=== PATIENT | female | born 1980 | race Caucasian/White ===

== ENCOUNTER 2017-03-12 07:09 | Inpatient (IN) | payer MEDICAID, OTHER ==
[2017-03-10 09:58] VITALS: BMI 35.9
[~2017-03-12] VITALS: Ht 160 cm; Wt 92.0 kg
[2017-03-12] VITALS (23 sets, daily range): BP systolic 110–143; BP diastolic 58–85; PULSE 54–84; RESP 14–24; Ht 160 cm; Wt 92.0 kg
[~2017-03-12 07:09] MED LIST: ROCURONIUM 50 MG INJ ONE
[2017-03-12] MEDS ORDERED: LISI10TA2 PO (07:38)
[2017-03-12] MEDS ORDERED: LACTATED RINGER'S 1,000 ML IV* SCH (09:00)
[2017-03-12] MEDS ORDERED: CEFAZOLIN 2 GM/50 ML (PMX) 50 ML IVPB SCH (09:00)
[2017-03-12] MEDS ORDERED: BUPIVACAINE 0.25% (MPF) 10 ML 10 ML VIAL ONE (10:21)
[2017-03-12] MEDS ORDERED: POLYMYXIN/BACITRACIN 1L IRRIG ONE (10:21)
[2017-03-12] MEDS ORDERED: THROMBIN 5000 UNIT VIAL ONE (10:21)
[2017-03-12] MEDS ORDERED: GELATIN SIZE 100 SPONGE ONE ×2 (10:21→12:20)
--- NOTE | 2017-03-12 10:50 | HPN ---
Date/Time of Note Date/Time of Note DATE: 03/12/17 TIME: 10:49 Interval H&P Admission Note Pt. seen H&P reviewed: No system changes SUNSHINE VEGA MD Mar 12, 2017 10:49
[2017-03-12] MEDS ORDERED: FENTAnyl 50 MCG/ML VIAL ONE (11:09)
[2017-03-12] MEDS ORDERED: PROPOFOL 20 ML ONE (11:10)
[2017-03-12] MEDS ORDERED: LIDOCAINE 2% (SDV) 5 ML INJ ONE (11:10)
[2017-03-12] MEDS ORDERED: LABETALOL HCL 20MG INJ ONE (11:37)
[2017-03-12] MEDS ORDERED: morphine 10 MG INJ ONE (11:38)
[2017-03-12] MEDS ORDERED: DEXAMETHASONE 4 MG/ML 1 ML INJ ONE (11:43)
--- NOTE | 2017-03-12 12:24 | RADRPT ---
PROCEDURE: Intraoperative XR. CLINICAL INDICATION: Intraoperative radiograph during lumbar spine surgery. TECHNIQUE: Spot intraoperative lateral lumbar x-ray image was provided. The images were reviewed on a high-resolution PACS workstation. COMPARISON: None available FINDINGS: Spot intraoperative lateral lumbar view were provided during lumbar spine surgery. The images demon strate metallic probe at the level of L3-4 and L4-5. IMPRESSION: 1. Spot intraoperative lateral lumbar view during L4-5 microdiskectomy were provided. 2. Please see operative report of the same day for further information. RPTAT: HGAS .James Foster MD, MD Date Time Electronically viewed and signed by .James Foster MD, on 03/12/2017 12:24 .S/
--- NOTE | 2017-03-12 12:25 | RADRPT ---
PROCEDURE: Intraoperative XR. CLINICAL INDICATION: Intraoperative radiograph during lumbar spine surgery. TECHNIQUE: Spot intraoperative lateral lumbar x-ray image was provided. The images were reviewed on a high-resolution PACS workstation. COMPARISON: None available FINDINGS: Spot intraoperative lateral lumbar view were provided during lumbar spine surgery. The images demon strate metallic instrumentation at the level of L4-5. IMPRESSION: 1. Spot intraoperative lateral lumbar view during L4-5 microdiskectomy were provided. 2. Please see operative report of the same day for further information. RPTAT: HGAS .James Foster MD, Date Time Electronically viewed and signed by .James Foster MD, MD on 03/12/2017 12:24 .S/
[2017-03-12] MEDS ORDERED: hydrALAzine 20 MG INJ IV PRN (12:30)
[2017-03-12] MEDS ORDERED: DIPHENHYDRAMINE 50 MG INJ IV PRN (12:30)
[2017-03-12] MEDS ORDERED: MEPERIDINE 25 MG INJ IV PRN (12:30)
[2017-03-12] MEDS ORDERED: EPHEDrine SULFATE 50 MG/5 ML SYG IV PRN (12:30)
[2017-03-12] MEDS ORDERED: HYDROmorphONE (0.2 MG/ML) 10ML SYG IV PRN ×3 (12:30)
[2017-03-12] MEDS ORDERED: ONDANSETRON 4 MG INJ IV PRN (12:30)
[2017-03-12] MEDS ORDERED: FENTAnyl 50 MCG/ML VIAL IV PRN ×3 (12:30)
[2017-03-12] MEDS ORDERED: ONDANSETRON 4 MG INJ ONE (12:30)
[2017-03-12] MEDS ORDERED: LABETALOL HCL 20MG INJ IV PRN (12:30)
[2017-03-12] MEDS ORDERED: METOCLOPRAMIDE 10 MG INJ IV PRN (12:30)
[2017-03-12] MEDS ORDERED: OXYCODONE/ACETAMINOPHEN (5/325) TAB PO PRN ×2 (12:30)
[2017-03-12] MEDS ORDERED: DEXTROSE 5%-0.45% NACL 1,000 ML IV SCH (12:56)
[2017-03-12] MEDS ORDERED: BETHANECHOL 25 MG TAB PO PRN (13:00)
[2017-03-12] MEDS ORDERED: DIPHENHYDRAMINE 50 MG CAP PO PRN (13:00)
[2017-03-12] MEDS ORDERED: CEPASTAT LOZENGE MT PRN (13:00)
[2017-03-12] MEDS ORDERED: HYDROmorphONE 0.2 MG/ML PCA IV SCH (13:00)
[2017-03-12] MEDS ORDERED: HYDROCODONE/APAP (5/325) TAB PO PRN ×3 (13:00→20:00)
[2017-03-12] MEDS ORDERED: NALOXONE (0.4 MG/ML) INJ IV PRN (13:00)
[2017-03-12] MEDS ORDERED: TRIMETHOBENZAMIDE 100 MG/ML VIAL IM PRN (13:00)
[2017-03-12] MEDS ORDERED: DIAZEPAM 5 MG TAB PO PRN (13:00)
[2017-03-12] MEDS ORDERED: ZOLPIDEM 5 MG TAB PO PRN (13:00)
[2017-03-12] MEDS ORDERED: AL HYDROX/MG HYDROX/SIMETH 30 ML CUP PO PRN (13:00)
[2017-03-12] MEDS ORDERED: DIAZEPAM 5 MG/ML SYG IM PRN (13:00)
[2017-03-12] MEDS ORDERED: NACL 0.9% 3 ML SYG IV SCH (13:00)
--- NOTE | 2017-03-12 13:03 | OPR ---
Date/Time of Note Date/Time of Note DATE: 03/12/17 TIME: 13:00 Operative Report Preoperative Diagnosis Herniated disc L4-5 on the left with extruded disc fragments Postoperative Diagnosis Same Operation/Procedure Performed Left hemilaminotomy L4 Microdiscectomy L4-5 on the left Medial facetectomy and foraminotomy L4-5 on the left Revision of scar (3 cm) Intraoperative nerve monitoring (60 minutes) Lateral localizing lumbar radiographs (2) Surgeon: SUNSHINE VEGA MD psych assistant: CHARITO GARRETT Anesthesia: general Estimated Blood Loss: 10 - 50 ml's Specimens Disc L4-5 on the left Grafts/Implants None Complications: None SUNSHINE VEGA MD Mar 12, 2017 13:03
[2017-03-12] MEDS ORDERED: HYDROmorphONE 0.2 MG/ML PCA ONE (13:09)
--- NOTE | 2017-03-12 15:06 | CONS ---
Date/Time of Note Date/Time of Note DATE: 03/12/17 TIME: 14:50 Assessment/Plan Assessment/Plan Additional Assessment/Plan will renew lisinopril 10 mg starting 03/13 and follow nichellejessie you -----thank you lyndon Consultation Date/Type/Reason Admit Date/Time Mar 12, 2017 at 07:09 Date of Consultation: Mar 12, 2017 Type of Consultation: internal medicine consultation Reason for Consultation moniter blood pressure and general medical status Referring Provider: SUNSHINE VEGA MD Hx of Present Illness post-op lumbar spine surgery history of hypertension and weight issues. prior surgeries lumbar spine surgery and tubal ligation social history patient is has 4 children Constitutional: no complaints Eyes: no complaints ENT: no complaints Respiratory: no complaints, No cough, No other, No pain, No pleuritic pain, No shortness of breath, No sputum, No wheezing Cardiovascular: no complaints Gastrointestinal: no complaints Genitourinary: no complaints Musculoskeletal: back pain Skin: no complaints Neurologic: no complaints Endocrine: no complaints Lymphatic: no complaints Psychological: no complaints Immunologic: no complaints Past Medical History Medical History: hypertension Past Surgical History lumbar spine surgery 07/2012 ,tubal ligation Past Surgical Hx: other (lumbar spine surgey 07/2012 ,tubal ligation) Family History Significant Family History: diabetes, renal disease Social History Alcohol Use: none Smoking Status: Never smoker Drug Use: none Other Social History 4 children Exam/Review of Systems Vital Signs Vitals Vital Signs Date Time Temp Pulse Resp B/P Pulse Ox O2 Delivery O2 Flow Rate FiO2 03/12/17 14:01 66 19 120/69 96 Nasal Cannula 2.0 03/12/17 12:58 98.1 Exam heent negative---lungs clear--heart regular rhythm--abdomen b.s. present neuro negative Medications Medications Current Medications Dextrose/Sodium Chloride (D5-1/2ns) 1,000 ml @ 100 mls/hr Q10H IV ; Start at 12:56 Acetaminophen/ Hydrocodone Bitart (Mason (5/325)) 1 tab Q4H PRN PO PAIN LEVEL 1 -5; Start 03/12/17 at 13:00; Status Future Hold Acetaminophen/ Hydrocodone Bitart 2 tab 2 tab Q4H PRN PO PAIN LEVEL 6-10; Start 03/12/17 at 13:00; Status Future Hold Cefazolin Sodium (Ancef 1 Gm/50 ml (Pmx)) 50 ml @ 100 mls/hr Q6 IVPB ; Start at 18:00; Stop 03/13/17 at 12:29 Zolpidem Tartrate (Ambien) 5 mg HS PRN PO INSOMNIA; Start 03/12/17 at 13:00 Prochlorperazine (Compazine) 10 mg Q4H PRN PO NAUSEA AND/OR VOMITING; Start 03/12/17 at 13:00 Trimethobenzamide HCl (Tigan) 200 mg Q4H PRN IM NAUSEA AND/OR VOMITING; Start 03/12/17 at 13:00 Ondansetron HCl (Zofran Inj) 4 mg Q6H PRN IV NAUSEA AND/OR VOMITING; Start 03/12 at 13:00 Al Hydrox/Mg Hydrox/Simethicone (Mag-Al Plus) 15 ml Q4H PRN PO CONSTIPATION; Start 03/12/17 at 13:00 Docusate Sodium (Colace) 100 mg BID PO ; Start 03/13/17 at 09:00 Acetaminophen (Tylenol Tab) 650 mg Q4H PRN PO TEMP GREATER THAN 101F OR MCCOLLUM; Start 03/12/17 at 13:00 Ascorbic Acid (Vitamin C) 1,000 mg BID PO ; Start 03/13/17 at 09:00 Ferrous Sulfate (Ferrous Sulfate (Ec)) 325 mg TID PO ; Start 03/13/17 at 09:00 Ranitidine HCl (Zantac) 150 mg BID PO ; Start 03/12/17 at 21:00 Diazepam (Valium) 5 mg Q4H PRN PO MUSCLE SPASMS; Start 03/12/17 at 13:00 Diazepam (Valium) 5 mg Q4H PRN IM MUSCLE SPASMS; Start 03/12/17 at 13:00 Phenol (Cepastat Lozenge) 1 lozenge PRN PRN MT SORE THROAT; Start 03/12/17 at 13 :00 Bethanechol Chloride (Urecholine) 25 mg PRN PRN PO UNABLE TO VOID; Start at 13:00 Diphenhydramine HCl (Benadryl) 50 mg Q6H PRN PO PRURITUS; Start 03/12/17 at 13: 00 Hydromorphone HCl (Dilaudid [employer]EL[employer]) Q4PCA IV Last administered on 03/12/17t 13:20 ; Admin Dose 30 MG; Start 03/12/17 at 13:00 Naloxone HCl (Narcan) 0.2 mg Q2M PRN IV RR 8 BREATHS/MIN OR LESS; Start at 13:00 DIOR CAGLE MD Mar 12, 2017 15:00
[2017-03-12] MEDS: ONDANSETRON 4 MG INJ IV PRN (16:22)
[2017-03-12] MEDS: CEFAZOLIN 1 GM/50 ML (PMX) 50 ML IVPB SCH (18:19)
[2017-03-12] MEDS: PROCHLORPERAZINE 10 MG TAB PO PRN (18:30)
[2017-03-12] MEDS: DEXTROSE 5%-0.45% NACL 500 ML IV SCH (19:06)
[2017-03-12] MEDS: RANITIDINE 150 MG TAB PO SCH (20:37)
[2017-03-12] MEDS: HYDROCODONE/APAP (5/325) TAB PO PRN (20:37)
[2017-03-13] MEDS: CEFAZOLIN 1 GM/50 ML (PMX) 50 ML IVPB SCH ×3 (00:16→12:49)
[2017-03-13] MEDS: DEXTROSE 5%-0.45% NACL 500 ML IV SCH ×4 (00:16→14:30)
[2017-03-13] MEDS: ACETAMINOPHEN 325 MG TAB PO PRN ×2 (00:18→05:48)
[2017-03-13 05:21] LABS: HEMATOCRIT 35.1 % (37.0-47.0); HEMOGLOBIN 11.6 g/dl (12.0-16.0)
[2017-03-13 05:42] LABS: CALCIUM 9.6 mg/dl (8.4-10.2); CREATININE 0.51 mg/dl (0.44-1.00)
--- NOTE | 2017-03-13 07:21 | PN ---
Date/Time of Note Date/Time of Note DATE: 03/13/17 TIME: 07:20 Assessment/Plan Lines/Catheters IV Catheter Type (from Nrs): Saline Lock Subjective 24 Hr Interval Summary The patient is postop day #1 following a microdiscectomy at L4-5 on the left. Her preoperative leg pain is gone. Neurovascular structures are intact distally. Her a.m. lab work is unremarkable. She had 40 cc and her Hemovac and it will be discontinued. She will be seen by physical therapy for walker ambulation training until she is independent. She may be discharged later today if cleared by physical therapy. Exam/Review of Systems Vital Signs Vitals Vital Signs Date Time Temp Pulse Resp B/P Pulse Ox O2 Delivery O2 Flow Rate FiO2 03/12/17 19:55 97.8 100 17 121/79 95 03/12/17 17:30 Nasal Cannula 2.0 Intake and Output 03/12/17 03/12/17 03/13/17 15:00 23:00 07:00 Intake Total 900 ml 50 ml 1850 ml Output Total 19 ml 40 ml Balance 881 ml 50 ml 1810 ml Results Result Diagram: 03/13/17 0420 03/13/17 0420 SUNSHINE VEGA MD Mar 13, 2017 07:21
[2017-03-13] MEDS ORDERED: BETHANECHOL 25 MG TAB PO PRN (08:00)
--- NOTE | 2017-03-13 08:06 | CONS ---
Date/Time of Note Date/Time of Note DATE: 03/13/17 TIME: 07:59 Assessment/Plan Assessment/Plan Chief Complaint/Hosp Course post-op lumbar spine surgery history of hypertension and weight issues. prior surgeries lumbar spine surgery and tubal ligation social history patient is has 4 children Problems: Additional Assessment/Plan plan per dr vega may benefit from lozenges or gargling re throat complaints Consultation Date/Type/Reason Admit Date/Time Mar 12, 2017 at 07:09 Initial Consult Date 03/12/17 Type of Consultation: internal medicine consultation Reason for Consultation medical f/u and blood pressure monitoring Referring Provider: SUNSHINE VEGA MD 24 HR Interval Summary Constitutional: no complaints Detailed Summary ENT: other (back of throat irritation at uvula 2nd to anesthesia) Respiratory: no complaints Cardiovascular: no complaints Gastrointestinal: no complaints Genitourinary: no complaints Musculoskeletal: back pain Skin: no complaints Neurologic: no complaints Endocrine: no complaints Psychological: no complaints Immunologic: no complaints Exam/Review of Systems Vital Signs Vitals Vital Signs Date Time Temp Pulse Resp B/P Pulse Ox O2 Delivery O2 Flow Rate FiO2 03/12/17 19:55 97.8 100 17 121/79 95 03/12/17 17:30 Nasal Cannula 2.0 Intake and Output 03/12/17 03/12/17 03/13/17 15:00 23:00 07:00 Intake Total 900 ml 50 ml 1850 ml Output Total 19 ml 40 ml Balance 881 ml 50 ml 1810 ml Exam Constitutional: alert Psych: no complaints Head: atraumatic, normocephalic Eyes: EOMI, PERRL, nl conjunctiva, nl lids, nl sclera ENMT: mucosa pink and moist Neck: supple Respiratory: clear to auscultation Cardiovascular: regular rate and rhythm Gastrointestinal: soft Musculoskeletal: nl extremities to inspection Results Result Diagram: 03/13/17 0420 03/13/17 0420 Results 24 hrs Laboratory Tests Test 03/13/17 04:20 03/13/17 05:22 Hemoglobin 11.6 L Hematocrit 35.1 L Sodium Level 141 Potassium Level 4.0 Chloride Level 100 Carbon Dioxide Level 28 Anion Gap 17 H Blood Urea Nitrogen 7 Creatinine 0.51 Glucose Level 157 Calcium Level 9.6 Lab Scanned Report LAB Medications Medications Current Medications Cefazolin Sodium (Ancef 1 Gm/50 ml (Pmx)) 50 ml @ 100 mls/hr Q6 IVPB Last administered on 03/13/17 05:16; Admin Dose 100 MLS/HR; Start 03/12/17 at 18:00; Stop 03/13/17 at 12:29 Zolpidem Tartrate (Ambien) 5 mg HS PRN PO INSOMNIA; Start 03/12/17 at 13:00 Prochlorperazine (Compazine) 10 mg Q4H PRN PO NAUSEA AND/OR VOMITING Last administered on 03/12/17 18:30; Admin Dose 10 MG; Start 03/12/17 at 13:00 Trimethobenzamide HCl (Tigan) 200 mg Q4H PRN IM NAUSEA AND/OR VOMITING; Start 03/12/17 at 13:00 Ondansetron HCl (Zofran Inj) 4 mg Q6H PRN IV NAUSEA AND/OR VOMITING Last administered on 03/12/17 16:22; Admin Dose 4 MG; Start 03/12/17 at 13:00 Al Hydrox/Mg Hydrox/Simethicone (Mag-Al Plus) 15 ml Q4H PRN PO CONSTIPATION; Start 03/12/17 at 13:00 Docusate Sodium (Colace) 100 mg BID PO ; Start 03/13/17 at 09:00 Acetaminophen (Tylenol Tab) 650 mg Q4H PRN PO TEMP GREATER THAN 101F OR MCCOLLUM Last administered on 03/13/17 05:48; Admin Dose 650 MG; Start 03/12/17 at 13:00 Ascorbic Acid (Vitamin C) 1,000 mg BID PO ; Start 03/13/17 at 09:00 Ferrous Sulfate (Ferrous Sulfate (Ec)) 325 mg TID PO ; Start 03/13/17 at 09:00 Ranitidine HCl (Zantac) 150 mg BID PO Last administered on 03/12/17 20:37; Admin Dose 150 MG; Start 03/12/17 at 21:00 Diazepam (Valium) 5 mg Q4H PRN PO MUSCLE SPASMS Last administered on 03/12/17 18:30; Admin Dose 5 MG; Start 03/12/17 at 13:00 Diazepam (Valium) 5 mg Q4H PRN IM MUSCLE SPASMS; Start 03/12/17 at 13:00 Phenol (Cepastat Lozenge) 1 lozenge PRN PRN MT SORE THROAT Last administered on 03/12/17 18:30; Admin Dose 1 LOZENGE; Start 03/12/17 at 13:00 Bethanechol Chloride (Urecholine) 25 mg PRN PRN PO UNABLE TO VOID; Start at 13:00 Diphenhydramine HCl (Benadryl) 50 mg Q6H PRN PO PRURITUS; Start 03/12/17 at 13: 00 Naloxone HCl (Narcan) 0.2 mg Q2M PRN IV RR 8 BREATHS/MIN OR LESS; Start at 13:00 Lisinopril 10 mg 10 mg DAILY PO ; Start 03/13/17 at 09:00 Dextrose/Sodium Chloride (D5-1/2ns) 500 ml @ 100 mls/hr Q5H IV Last administered on 03/13/17 05:16; Admin Dose 100 MLS/HR; Start 03/12/17 at 18:30 Acetaminophen/ Hydrocodone Bitart ([place] (5/325)) 1 tab Q4H PRN PO PAIN LEVEL 1 -5 Last administered on 03/12/17 20:37; Admin Dose 1 TAB; Start 03/12/17 at 20:00 Acetaminophen/ Hydrocodone Bitart ([place] (5/325)) 2 tab Q4H PRN PO PAIN LEVEL 6 -10; Start 03/12/17 at 20:00 Bethanechol Chloride (Urecholine) 25 mg PRN PRN PO UNABLE TO VOID; Start at 08:00 DIOR CAGLE MD Mar 13, 2017 08:06
[2017-03-13] MEDS: RANITIDINE 150 MG TAB PO SCH (08:12)
[2017-03-13] MEDS: FERROUS SULFATE (EC) 325 MG TAB PO SCH ×2 (08:12→12:48)
[2017-03-13 08:18] VITALS: BP 125/76; RESP 16
[2017-03-13] MEDS: ONDANSETRON 4 MG INJ IV PRN ×2 (08:19→15:16)
[2017-03-13] MEDS ORDERED: ASCORBIC ACID 500 MG TAB PO SCH (09:00)
[2017-03-13] MEDS ORDERED: LISINOPRIL 10 MG TAB PO SCH (09:00)
[2017-03-13] MEDS ORDERED: DOCUSATE SODIUM 100 MG CAP PO SCH (09:00)
[2017-03-13] MEDS: HYDROCODONE/APAP (5/325) TAB PO PRN ×3 (12:51→20:39)
[2017-03-13] MEDS: PROCHLORPERAZINE 10 MG TAB PO PRN (20:39)
--- NOTE | 2017-03-17 10:05 | DS ---
Date/Time of Note Date/Time of Note DATE: 03/17/17 TIME: 10:04 Discharge Summary Admission/Discharge Info Admit Date/Time Mar 12, 2017 at 07:09 Discharge Date/Time Mar 13, 2017 at 21:06 Discharge Diagnosis Herniated disc L4-5 on the left with extruded disc fragments Patient Condition: Good Hospital Course Pt did well during her hospital course. Pain was well controlled postoperatively. Her diet and activity were advanced as tolerated. She was discharged home in good condition on postop day #1. Home Meds Reported Medications Lisinopril* (Lisinopril*) 10 Mg Tablet, 10 MG PO DAILY, #30 TAB 03/12/17 Follow-up Plan Follow-up with Dr. Richmond in 1 to 2 weeks Primary Care Provider Not On Staff Doctor TEDDY EDMONDS Mar 17, 2017 10:05
--- NOTE | 2017-04-07 15:44 | OPR ---
DATE OF OPERATION: 03/12/2017 PREOPERATIVE DIAGNOSIS: Herniated disc, L4-5 on the left with inferior extruded disc fragments. POSTOPERATIVE DIAGNOSIS: Herniated disc, L4-5 on the left with inferior extruded disc fragments. PROCEDURES: 1. Left hemilaminotomy L4. 2. Microdiskectomy L4-5 on the left. 3. Medial facetectomy and foraminotomy, L4-5 on the left. 4. Revision of scar (3 cm). 5. Lateral localized lumbar radiographs (2). 6. Intraoperative nerve monitoring (60 minutes). SURGEON: Dr. Kwadwo Richmond. TELEGRAPHIC TYPEWRITER REPAIRER: TOM Munoz. ANESTHESIA: General endotracheal by Dr. Gavino Hurst. ESTIMATED BLOOD LOSS: 20 cc-none replaced. DRAINS: Two medium Hemovac drains employed. COMPLICATIONS: None. PERTINENT HISTORY AND PHYSICAL: This is a 36-year-old female with persistent back and left leg pain which has been unrelieved by conservative management. She has undergone a number of diagnostic studies including an MRI of lumbar spine, which demonstrated a disc herniation at L4-5 on the left with inferior extruded disc fragments and postsurgical changes at L5-S1 from previous surgery in 2011. Treatment options were discussed with the patient, she elected to do the surgery. OPERATION PERFORMED: With the patient in the supine position after satisfactory induction of general endotracheal anesthesia by Dr. Hurst, the patient was turned to the prone kneeling position onto the Faraz frame. All pressure points were carefully padded. The back was prepped and draped usual sterile fashion. Thrombotic pumps were applied to the legs below the knees. Venous stasis during and after the procedure. Two spinal needles were placed next to what felt to be the L4 and L5 spinous processes, lateral roentgenogram was taken which confirmed anatomic localization. A 3 cm incision encountered midline over the spinous process of L4 after the skin was infiltrated with 0.25 percent Marcaine without epinephrine for postoperative analgesia. Superficial retractors were placed. Hemostasis secured with electrocautery. Throughout the procedure copious amounts of antibacterial irrigating solution used periodically irrigate the wound. The fascia was incised in the midline with a hot knife and unilateral subperiosteal dissection carried out at L4 on the left. Deep retractors were placed and deep hemostasis secured with electrocautery. A second intraoperative radiograph was taken with a deep retractor and was felt to be the L4-5 interspace and this was confirmed with a second x-ray. A left hemilaminotomy was then carried out using Leksell rongeur, Kerrison punches and curettes. The ligamentum flavum was excised with sharp dissection. The operating microscope was then moved into place. A medial facetectomy and foraminotomy was accomplished using small hand osteal mallet, Kerrison punches and curettes. The L5 root was mobilized medially and protected with [____] nerve retracted using microdissection technique. This revealed a herniation of the L4-5 disc with some extruded disc material below the level of the disc space. The 15 blade knife was used to cut a rectangular window in the anulus and posterior longitudinal ligament, and multiple degenerative disc fragments were harvested with rongeurs and sent to lab for pathologic study. Additional fragments were harvested using Rex curettes. A thorough search of the floor of canal was made with an arthroscopic probe and no additional fragments were encountered. The epidural hemostasis was secured with bipolar electrocautery on a low setting. The anesthesiologist was asked to perform a Valsalva maneuver 40 mmHg and no spinal fluid leaks were noted. The wound was then closed in layers over 2 medium Hemovac drains using number 1 Vicryl [id number] approximating suture in deep [____] musculature and deep fascia of the back. 2-0 Vicryl subcutaneous approximating sutures on the subcutaneous tissue and a 4-0 Vicryl subcuticular cosmetic closing suture on the skin. Dermabond and sterile compression dressings were applied. The patient having tolerated the procedure well was then turned to supine position onto her bed and extubated by Dr. Hurst. She was transported to the recovery room in satisfactory condition. At the conclusion procedure, sponge and needle counts were all correct. NEED FOR BUSINESS TEAM LEADER: During this spinal surgical procedure, my talent assistant was used to retract and protect the spinal nerves and dural sac. My talent assistant also employed the suction catheters to evacuate blood from the surgical field to improve visualization of the neural structures. The talent assistant was medically necessary to facilitate the completion of the surgery in a safe and expeditious manner. State of [place] regulations, as well as hospital bylaws, preclude the use of non- licensed health care personnel such as operating room technicians, to perform these functions. MONITORING: Throughout the procedure neuro monitoring was carried out by [employer] including EMG, SSEP and MEP monitoring of the L3, L4, L5 and S1 nerve roots bilaterally along with spinal cord potentials. These were interpreted by a neurologist employed by [employer]. Dictated By: Kwadwo Richmond MD /coco/abelardo /Document#: [id number]
== END 2017-03-13 21:06 | disposition home or self-care (01) | DRG 520 ==
LOC: REC 07:09 → MS1 14:20
PROVIDERS: ADMIT Orthopaedic Surgery; ATTEND Orthopaedic Surgery
PROC: 0SB20ZZ Excision of Lumbar Vertebral Disc, Open Approach (ICD-10-PCS; principal; 2017-03-12 10:00)
DX: M51.26 Other intervertebral disc displacement, lumbar region (principal); I10 Essential (primary) hypertension; J39.2 Other diseases of pharynx; T41.0X5A Adverse effect of inhaled anesthetics, initial encounter; Y92.234 Operating room of hospital as the place of occurrence of the external cause
CPT/HCPCS: 72020; 80048; 84703; 85014; 85018; 86850; 86900; 86901; 86920; 88304; 97116; 97162; 97530; J0690; J1100; J1170; J2175; J2270; J2405; J3010; J7042